=== PATIENT | female | born 1990 | race Caucasian/White ===

== ENCOUNTER 2020-07-05 13:56 | Emergency (ER) | payer OTHER, BC ==
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
== END 2020-07-05 16:14 | disposition home or self-care (01) ==
LOC: DL.ED 13:56
DX: S09.90XA Unspecified injury of head, initial encounter (principal); V87.7XXA Person injured in collision between other specified motor vehicles (traffic), initial encounter
CPT/HCPCS: 70450; 81025; 99284-25

== ENCOUNTER 2021-03-16 00:08 | Observation (INO) | payer BC, OTHER ==
[2021-03-16] MEDS ORDERED: Acetaminophen 325 MG Tab PO PRN ×2 (00:19→09:54)
[2021-03-16] MEDS ORDERED: Lactated Ringers 1,000 ML IV ONE (00:19)
[2021-03-16] MEDS ORDERED: Misoprostol 400 MCG (4 X 100 MCG TAB) RECTAL PRN (00:19)
[2021-03-16] MEDS ORDERED: Sodium Chloride 0.9% 10 ML Syringe FLUSH PRN ×2 (00:19→09:54)
[2021-03-16] MEDS ORDERED: Ondansetron 4 MG/2 ML SDV IVPUSH PRN (00:19)
[2021-03-16] MEDS ORDERED: Carboprost Tromethamine 250 MCG/1 ML Amp IM PRN (00:19)
[2021-03-16] MEDS ORDERED: Methylergonovine 0.2 MG/1 ML Amp IM PRN (00:19)
[2021-03-16] MEDS ORDERED: Lidocaine 1% 30 ML SDV INJECT PRN (00:19)
[2021-03-16] MEDS ORDERED: Tranexamic Acid 1,000 MG in Sodium Chloride 0.9% 100 ML IV PRN (00:19)
[2021-03-16] MEDS ORDERED: hydrOXYzine HCl 25 MG Tab PO ONE (00:25)
[2021-03-16] MEDS ORDERED: Oxytocin/Normal Saline 30 UNIT/500 ML BAG IV SCH (00:30)
[2021-03-16] MEDS: Lactated Ringers 1,000 ML IV SCH ×4 (01:30→08:35)
--- NOTE | 2021-03-16 02:39 | HP ---
CHIEF COMPLAINT: Increased frequency of contractions. HISTORY OF PRESENT ILLNESS: This 31-year-old, G2, P1-0-0-1, currently at 39 weeks 4 days confirmed by last menstrual period on 06/12/2020, comes in for elective induction of labor. She currently is having contractions every 3 to 4 minutes since 8 p.m. She also has cervical change from 2.5 cm to 4 cm since being seen in the clinic earlier today, but denies any leakage of fluid. She has good movement and positive for bloody show. OBSTETRICAL HISTORY: overall unremarkable. She had mild anemia of in second trimester with hemoglobin at 10.8. Previous delivery on 11/18/2017 at 37 weeks 4 days via vaginal spontaneous delivery with no complications. LABS: Blood type A positive, antibody screen negative, hemoglobin 10.8, platelets 195. Rubella immune. RPR, hepatitis B surface antigen, HIV, and hep C nonreactive. Gonorrhea and chlamydia negative. Wet prep negative. One-hour glucose tolerance test 109 and GBS negative. PAST MEDICAL HISTORY: Chlamydia in 2010. SURGICAL HISTORY: None. FAMILY HISTORY: Mother is . Paternal grandmother had breast cancer. Paternal grandfather, glaucoma. Maternal grandmother, stroke. SOCIAL HISTORY: Lives with and son Armani in [place]. REVIEW OF SYSTEMS: Denies any fever, chills, vision changes, chest pain, shortness of breath, right upper quadrant pain, nausea or vomiting. Positive for mild allergy symptoms for which she is taking Zyrtec. MEDICATIONS: vitamin, Augmentin for sinusitis, and Zyrtec. ALLERGIES: Seasonal and dust mite. OBJECTIVE: General: Pleasant, well-appearing 31-year-old female. Vital Signs: Blood pressure 118/70, temp 98.2, HR 68 R:16 HEENT: Grossly unremarkable. Heart: Regular without murmur. Lungs: Clear to auscultation bilaterally with good chest expansion. Abdomen: Gravid, soft, nontender. Extremities: No edema, erythema or tenderness. Skin: No rash, cyanosis or jaundice. Neurological: Appropriate with no focal deficits. Christine contractions every 3 or 4 minutes felt by patient. heart tracing category 1 with accelerations and base heart rate of 130. Cervical exam, 4 cm dilated, 75% effaced, -2 station. ASSESSMENT: 1. 39 and 4 week intrauterine based on last menstrual period 06/12/2020. 2. G2, P1-0-0-1. 3. ABO A positive, antibody screen negative, rubella immune, GBS negative. 4. Anemia of , second trimester, with hemoglobin of 10.8. PLAN: Admit to Labor and Delivery for routine labor cares, allow normal labor to progress. Plan on intrathecal and nitrous for pain management. All questions have been answered. Assessment and plan are under advisement of Dr. Price. [facility] /[id number] Patient was personally seen and examined with the medical student. I reviewed the noted scribed on my behalf and necessary changes have been made to reflect my opinion on the history, exam, assessment, and plan. Peggy Price MD [facility]
[2021-03-16] MEDS ORDERED: Sodium Bicarbonate 4.2% 2.5 MEQ/5 ML SDV ONE ×4 (03:40→08:35)
[2021-03-16] MEDS ORDERED: Sodium Chloride 0.9% 20 ML SDV ONE ×2 (03:40→08:30)
[2021-03-16] MEDS ORDERED: EPINEPHrine 1 MG/ML SDV ONE ×2 (03:40→03:51)
[2021-03-16] MEDS ORDERED: fentaNYL 100 MCG/2 ML SDV ITHECAL ONE ×3 (03:40→08:30)
[2021-03-16] MEDS ORDERED: fentaNYL 100 MCG/2 ML SDV ONE ×2 (03:51→08:34)
--- NOTE | 2021-03-16 04:20 | PCM.SN.2 ---
- Free Text/Narrative Note: Intrathecal. Sitting position, sterile prep and drape. 1% lidocaine w bicarb for skinwheal to L2 L3 interspace x 2, introducer and 24 ga Pencan x 4. Pos CSF, neg heme, neg parasthesia. 0.1 ml of 1:1000 pf epi, 20 mcg pf Sufenta, 30 mcg pf Fentanyl, 0.4 ml pf NS and 6 mg of 0.75% pf Marcaine injected after CSF aspirat ion. Pt to L lateral position. Procedure time 0340 to 0415 Time Documentation Time Documentation
[2021-03-16] MEDS ORDERED: hydrOXYzine HCl 25 MG Tab ONE (04:33)
--- NOTE | 2021-03-16 08:58 | PCM.SN.2 ---
- Free Text/Narrative Note: Intrathecal. Sitting position, sterile prep and drape. 1% lidocaine w bicarb for skinwheal to L2 L3 interspace x 2, introducer and 24 ga Pencan x 2. Pos CSF, neg heme, neg parasthesia. 20 mcg pf Sufenta, 30 mcg pf Fentanyl, 0.4 ml pf NS and 6 mg of 0.75% pf Marcaine injected after CSF aspiration. Pt to L lateral pos ition. Procedure time 0830 to 0900 Time Documentation Time Documentation
[2021-03-16] MEDS ORDERED: Oxytocin 10 Units/1 ML SDV IM PRN (09:54)
[2021-03-16] MEDS ORDERED: Simethicone 80 MG Tab.Chew PO PRN (09:54)
[2021-03-16] MEDS ORDERED: Benzocaine/Menthol 20%-0.5% Spray 78 GM Cannister TOP PRN (09:54)
[2021-03-16] MEDS: Ibuprofen 800 MG Tab PO PRN ×2 (13:50→22:40)
[2021-03-16] MEDS: Docusate Sodium 100 MG Cap PO PRN (20:52)
[2021-03-16] MEDS ORDERED: Zolpidem 5 MG Tab PO PRN (21:00)
[2021-03-16] MEDS ORDERED: Witch Hazel Medicated Pads 100/Jar TOP PRN (21:38)
--- NOTE | 2021-03-16 23:24 | PCM.DEL ---
L & D Note - General Info Date of Service: 03/16/21 Mother's Due Date: 03/19/21 - Delivery Note Labor: Spontaneous Delivery Outcome: Livebirth Infant Delivery Method: Spontaneous Vaginal Delivery-Single Presentation: Right Occiput Posterior (ROP) Nuchal Cord: Present (x2), Reduced Anesthesia Type: Intrathecal Amniotic Fluid Description: Clear Episiotomy Type: None Laceration: 2nd Degree, Perineal Suture type: Vicryl Suture size: 3-0 Placenta: Intact, Spontaneous Cord: 3 Vessels Estimated Blood Loss: 250 : Suctioned, Bulb Syringe, Stimulated, Warmed Provider: Peggy Price Score 1 min: 7 Score 5 min: 8 Delivery Comments (Free Text/Narrative):: Sherrie is a at 39w4d who arrived to L&D at midnight for elective scheduled IOL. Her membranes had been stripped earlier yesterday in clinic. Upon arrive to L&D, patient was noted to be 4 cm dilated and jojo regularly. She was admitted for active labor and routine management began. Patient received an intrathecal for pain control around 0400. She was noted to be completely dilated around 0800 with a bulging bag. Patient's intrathecal had begun to wear off at this point. Attempted pushing on her side; however, due to patient's discomfort, pushing was not adequate. Because of inability to push due to pain and reassuring status, a saddle block was placed by anesthesia for pain co ntrol. After several minutes, patient's pain did improve enough for her to push. Patient pushed for 16 minutes and delivered a viable male with Apgars of 7 and 8 at 1 and 5 minutes respectively. A moderately tight nuchal cord x2 was noted, and baby was in ROP position. body was delivered via summersault maneuver, and the cord was manually reduced. Baby was placed on patient's chest. Cord was clamped x2 and cut. Cord blood was obtained. The placenta delivered spontaneously a few minutes later and was noted to be intact. Pitocin was initiated. Uterus was noted to be firm, and bleeding was appropriate. Inspection of the perineum revealed a second degree perineal laceration. This was repaired with 3-0 Vicryl suture in the usual fashion with good results. Uterine tone and bleeding were again assessed and noted to be appropriate. Counts were correct. Patient tolerated the procedure well, and there were no immediate complications. - General Info Date of Service: 03/16/21 - Patient Data Vitals - Most Recent: Last Vital Signs Temp 36.2 C 03/16/21 07:30 Pulse 84 03/16/21 12:30 Resp 16 03/16/21 12:30 BP 93/64 03/16/21 12:30 Pulse Ox 93 L 03/16/21 09:15 Weight - Most Recent: 80.739 kg I&O - Last 24 Hours: Intake & Output 03/16/21 03/16/21 03/17/21 14:59 22:59 06:59 Intake Total 1500 Output Total 800 Balance 700 Lab Results Last 24 Hours: Laboratory Results - last 24 hr 03/16/21 03/16/21 Range/Units 00:25 01:25 WBC 11.9 H (5.0-10.0) 10^3/uL RBC 3.61 L (4.2-5.4) 10^6/uL Hgb 11.8 L (12.0-16.0) g/dL Hct 35.3 L (37.0-47.0) % MCV 97.8 (80-100) fL MCH 32.7 (27.0-34.0) pg MCHC 33.4 (33.0-35.0) g/dL Plt Count 273 (150-450) 10^3/uL SARS-CoV-2 RNA (SONIA) Negative (NEGATIVE) Med Orders - Current: Current Medications Acetaminophen (Acetaminophen 325 Mg Tab) 650 mg PO Q4H PRN PRN Reason: Pain (Mild 1-3) and fever Last Admin: 03/16/21 20:51 Dose: 650 mg Documented by: Benzocaine/Menthol (Benzocaine/Menthol 20%-0.5% Union 78 Gm Cannister) 0 gm TOP Q4H PRN PRN Reason: Perineal comfort measures Last Admin: 03/16/21 14:30 Dose: 1 spray Documented by: Carboprost Tromethamine (Carboprost Tromethamine 250 Mcg/1 Ml Amp) 250 mcg IM ASDIRECTED PRN PRN Reason: HEMORRHAGE Docusate Sodium (Docusate Sodium 100 Mg Cap) 100 mg PO BID PRN PRN Reason: Constipation Last Admin: 03/16/21 20:52 Dose: 100 mg Documented by: Tranexamic Acid 1,000 mg/ (Sodium Chloride) 110 mls @ 660 mls/hr IV ONETIME PRN PRN Reason: Bleeding Oxytocin/Sodium Chloride (Pitocin In Ns 30 Unit/500 Ml) 30 unit in 500 mls @ 2 mls/hr IV TITRATE JAKUB; Protocol Last Titration: 03/16/21 13:00 Dose: Infused Documented by: Lactated Ringer's (Ringers, Lactated) 1,000 mls @ 125 mls/hr IV ASDIRECTED JAKUB Last Admin: 03/16/21 08:35 Dose: 125 mls/hr Documented by: Ibuprofen (Ibuprofen 800 Mg Tab) 800 mg PO Q8H PRN PRN Reason: Cramping Last Admin: 03/16/21 13:50 Dose: 800 mg Documented by: Lidocaine HCl (Lidocaine 1% 30 Ml Sdv) 30 ml INJECT ASDIRECTED PRN PRN Reason: Perineal Repair Methylergonovine Maleate (Methylergonovine 0.2 Mg/1 Ml Amp) 0.2 mg IM ASDIRECTED PRN PRN Reason: Hemorrhage Misoprostol (Misoprostol 400 Mcg (4 X 100 Mcg Tab)) 800 mcg RECTAL ASDIRECTED PRN PRN Reason: Hemorrhage Ondansetron HCl (Ondansetron 4 Mg/2 Ml Sdv) 4 mg IVPUSH Q4H PRN PRN Reason: Nausea/Vomiting Last Admin: 03/16/21 03:54 Dose: 4 mg Documented by: Oxytocin (Oxytocin 10 Units/1 Ml Sdv) 10 unit IM ONETIME PRN PRN Reason: Bleeding Prenat Multivit/[facility]/Iron/Folic Ac ( Multivitamin With Calcium/Folic Acid/Iron Tab) 1 each PO DAILY [facility] Simethicone (Simethicone 80 Mg Tab.Chew) 80 mg PO Q4H PRN PRN Reason: Gas Sodium Chloride (Sodium Chloride 0.9% 10 Ml Syringe) 10 ml FLUSH ASDIRECTED PRN PRN Reason: Keep Vein Open Witch Margo (Witch Margo Medicated Pads 100/Jar) 1 pad TOP ASDIRECTED PRN PRN Reason: perineal pain Zolpidem Tartrate (Zolpidem 5 Mg Tab) 5 mg PO BEDTIME PRN PRN Reason: Insomnia Discontinued Medications Epinephrine HCl (Epinephrine 1 Mg/Ml Sdv) Confirm Administered Dose 1 mg .ROUTE .STK-MED ONE Stop: 03/16/21 03:52 Last Admin: 03/16/21 07:15 Dose: Not Given Documented by: Epinephrine HCl (Epinephrine 1 Mg/Ml Sdv) 0.1 mg .XX .STK-MED ONE Stop: 03/16/21 03:41 Fentanyl (Fentanyl 100 Mcg/2 Ml Sdv) Confirm Administered Dose 100 mcg .ROUTE .STK-MED ONE Stop: 03/16/21 03:52 Last Admin: 03/16/21 07:15 Dose: Not Given Documented by: Fentanyl (Fentanyl 100 Mcg/2 Ml Sdv) Confirm Administered Dose 100 mcg .ROUTE .S TK-MED ONE Stop: 03/16/21 08:35 Last Admin: 03/16/21 09:05 Dose: Not Given Documented by: Fentanyl (Fentanyl 100 Mcg/2 Ml Sdv) 30 mcg ITHECAL .STK-MED ONE Stop: 03/16/21 03:41 Fentanyl (Fentanyl 100 Mcg/2 Ml Sdv) 20 mcg ITHECAL .STK-MED ONE Stop: 03/16/21 03:41 Fentanyl (Fentanyl 100 Mcg/2 Ml Sdv) 30 mcg ITHECAL .STK-MED ONE Stop: 03/16/21 08:31 Hydroxyzine HCl (Hydroxyzine Hcl 25 Mg Tab) 50 mg PO ONETIME ONE Stop: 03/16/21 00:26 Last Admin: 03/16/21 04:35 Dose: 50 mg Documented by: Hydroxyzine HCl (Hydroxyzine Hcl 25 Mg Tab) Confirm Administered Dose 50 mg .ROUTE .STK-MED ONE Stop: 03/16/21 04:34 Last Admin: 03/16/21 06:06 Dose: Not Given Documented by: Lactated Ringer's (Ringers, Lactated) 1,000 mls @ 125 mls/hr IV BOLUS ONE Stop: 03/16/21 08:18 Last Admin: 03/16/21 07:14 Dose: Not Given Documented by: Sodium Bicarbonate (Sodium Bicarbonate 4.2% 2.5 Meq/5 Ml Sdv) Confirm Administered Dose 2.5 meq .ROUTE .STK-MED ONE Stop: 03/16/21 03:53 Last Admin: 03/16/21 07:16 Dose: Not Given Documented by: Sodium Bicarbonate (Sodium Bicarbonate 4.2% 2.5 Meq/5 Ml Sdv) Confirm Administered Dose 2.5 meq .ROUTE .STK-MED ONE Stop: 03/16/21 08:36 Last Admin: 03/16/21 09:05 Dose: Not Given Documented by: Sodium Bicarbonate (Sodium Bicarbonate 4.2% 2.5 Meq/5 Ml Sdv) 0.5 meq .XX .STK- MED ONE Stop: 03/16/21 03:41 Sodium Bicarbonate (Sodium Bicarbonate 4.2% 2.5 Meq/5 Ml Sdv) 0.5 meq .XX .STK- MED ONE Stop: 03/16/21 08:31 Sodium Chloride (Sodium Chloride 0.9% 20 Ml Sdv) 0.4 ml .XX .STK-MED ONE Stop: 03/16/21 03:41 Sodium Chloride (Sodium Chloride 0.9% 20 Ml Sdv) 1 ml .XX .STK-MED ONE Stop: 03/16/21 08:31 Sufentanil Citrate (Sufentanil 50 Mcg/1 Ml Amp) Confirm Administered Dose 50 mcg .ROUTE .STK-MED ONE Stop: 03/16/21 03:52 Last Admin: 03/16/21 07:16 Dose: Not Given Documented by: Sufentanil Citrate (Sufentanil 50 Mcg/1 Ml Amp) Confirm Administered Dose 50 mcg .ROUTE .STK-MED ONE Stop: 03/16/21 08:36 Last Admin: 03/16/21 09:05 Dose: Not Given Documented by: Sufentanil Citrate (Sufentanil 50 Mcg/1 Ml Amp) 20 mcg ITHECAL .STK-MED ONE Stop: 03/16/21 08:31 - Problem List & Annotations (1) care SNOMED Code(s): 378826864, 26323625, 115191986, 927342098 Code(s): Z34.90 - ENCNTR FOR SUPRVSN OF NORMAL , UNSP, UNSP TRIMESTER Status: Acute Current Visit: Yes (2) Anemia in preg-unspec SNOMED Code(s): 06387386 Code(s): O99.019 - ANEMIA COMPLICATING , UNSPECIFIED TRIMESTER Status: Acute Current Visit: Yes (3) (normal spontaneous vaginal delivery) SNOMED Code(s): 10678289, 504009541 Code(s): O80 - ENCOUNTER FOR FULL-TERM UNCOMPLICATED DELIVERY Status: Acute Current Visit: Yes (4) Perineal laceration SNOMED Code(s): 816421019 Code(s): XXW9915 - Status: Acute Current Visit: Yes - Problem List Review Problem List Initiated/Reviewed/Updated: Yes - My Orders Last 24 Hours: My Active Orders 03/16/21 21:38 ricardo Rod [Tucks] 1 pad TOP ASDIRECTED PRN - Assessment Assessment:: 31-year-old, now , s/p at 39w4d - Plan Plan:: 1. Initiate routine cares 2. Plans to breastfeed 3. Anticipate discharge 03/18/2021. Dr. Smith will assume care over the weekend. Dr. Peggy Price MD
[2021-03-17] MEDS ORDERED: Prenatal Multivitamin with Calcium/Folic Acid/Iron Tab PO SCH (09:00)
[2021-03-17] MEDS: Ibuprofen 800 MG Tab PO PRN (09:50)
[2021-03-17] MEDS: Docusate Sodium 100 MG Cap PO PRN (09:50)
--- NOTE | 2021-03-17 21:48 | DISCH ---
ADMITTING DIAGNOSES: 1. 39 and 4/7 weeks' intrauterine based on last menstrual period on 06/12/2020. 2. G2, P1-0-0-1. 3. ABO A positive, antibody screen negative, rubella immune, group B streptococcus negative. 4. Anemia of , 2nd trimester with hemoglobin of 10.8. DISCHARGE DIAGNOSES: 1. 39 and 4/7 weeks' intrauterine based on last menstrual period on 06/12/2020. 2. G2, P2-0-0-2. 3. ABO A positive, antibody screen negative, rubella immune, group B streptococcus negative. 4. Anemia of , 2nd trimester with hemoglobin of 10.8. 5. Status post spontaneous vaginal delivery with secondary laceration repair. PROCEDURES PERFORMED: 1. Spontaneous vaginal delivery with secondary laceration repair under intrathecal anesthesia. BRIEF HISTORY: A 31-year-old female with above diagnoses, presented to hospital in labor. She received 2 intrathecals and nitrous for pain management. Stage I labor lasted 9 hours, stage II 20 minutes, stage III 5 minutes. Labor was uncomplicated, but significant for nuchal cord x2, reduced bluntly. HOSPITAL COURSE: Has been good. Bleeding has been decreasing throughout her stay with passage of minimal blood clots. She is breast-feeding and does have some pain with cracked and bleeding nipples, for which she has received cream. She is tolerating her diet, has no signs or symptoms of infection, hemorrhage, or other complications. She is ambulating, urinating, and passing gas without issues. DISCHARGE CONDITION: Good. PHYSICAL EXAMINATION: Vital Signs: Temp 98.4 degrees Fahrenheit, heart rate 89, respiratory rate 18, O2 of 99%, blood pressure 122/44. Heart: Regular without murmur. Lungs: Clear to auscultation bilaterally. Abdomen: Soft, nontender. Fundus is firm below umbilicus. Extremities: No edema, erythema, or tenderness. DISPOSITION: Home with family. MEDICATIONS: [id number]-[id number] Tylenol and ibuprofen for pain. Continue vitamin with iron and continue Augmentin course for sinusitis. FOLLOWUP: She will be seen in 6 weeks for routine examination and also will be seen on 03/20/2021, for baby's well-child checkup. INSTRUCTIONS: Routine postvaginal delivery instructions for mother were provided and all questions answered. [facility] /[id number] [place]
== END 2021-03-17 17:30 | disposition home or self-care (01) ==
LOC: DL.OBCHECK 00:08 → DL.OB 00:55
PROVIDERS: ADMIT Family Medicine; ATTEND Family Medicine
DX: O99.013 Anemia complicating pregnancy, third trimester (principal); O36.0131 Maternal care for anti-D [Rh] antibodies, third trimester, fetus 1; Z3A.39 39 weeks gestation of pregnancy; Z79.899 Other long term (current) drug therapy; Z01.812 Encounter for preprocedural laboratory examination; Z20.822 Contact with and (suspected) exposure to COVID-19
CPT/HCPCS: 01967; 36415; 59409; 85027; A9270-GY; J0171; J2405; J2590; J3010; J7120; U0002